=== PATIENT | female | born 1960 | race Hispanic/Latino ===

== ENCOUNTER → 2024-07-08 | Day surgery (SDC) | payer OTHER ==
[~2024-07-08] MED LIST: AMOX/CLAV PO; FAMOTIDINE20 MG PO; FENTANYL CITRATE/PF 100MCG/2 ML INJ ONE; IBUPROFEN400 MG PO; LIDOCAINE HCL 2% LOCAL INJ 5 ML SDV VIAL INJ ONE; METOCLOPRAMIDE10 MG PO; MIDAZOLAM HCL 2 MG/2 ML VIAL ONE; PROPOFOL IV EMULSION 10 MG/ML 20 ML VIAL ONE; VASOTEC10 M1 PO
[2024-07-08] MEDS: LACTATED RINGER'S 1,000 ML ONE (10:41)
[2024-07-08 13:36] VITALS: TEMP 97.9
[2024-07-08 13:50] VITALS: BP 126/83; PULSE 71; RESP 16; O2SAT 97
== END | disposition home or self-care (01) ==
LOC: OR 10:12
PROVIDERS: ATTEND Internal Medicine Gastroenterology
DX: Z12.11 Encounter for screening for malignant neoplasm of colon (principal); K29.50 Unspecified chronic gastritis without bleeding; K21.00 Gastro-esophageal reflux disease with esophagitis, without bleeding; K44.9 Diaphragmatic hernia without obstruction or gangrene; R09.A2 Foreign body sensation, throat; I10 Essential (primary) hypertension; E78.5 Hyperlipidemia, unspecified; E66.01 Morbid (severe) obesity due to excess calories; Z01.810 Encounter for preprocedural cardiovascular examination; Z79.899 Other long term (current) drug therapy; Z79.1 Long term (current) use of non-steroidal anti-inflammatories (NSAID); Z68.38 Body mass index [BMI] 38.0-38.9, adult; Z80.0 Family history of malignant neoplasm of digestive organs
CPT/HCPCS: 43239; 45378; 88305; 88342; 93005; J2003; J2250; J2704; J3010; J7121